=== PATIENT | female | born 1985 | race Caucasian/White ===

== ENCOUNTER 2017-11-07 13:31 | Outpatient (CLI) | payer BC ==
--- NOTE | 2017-11-07 16:16 | ULT ---
EXAM: LEFT BREAST ULTRASOUND 11/07/17 HISTORY: Palpable focus felt by the patient's doctor at the 2 o'clock position left breast. COMPARISON: None. TECHNIQUE: Targeted sonographic imaging left breast is performed at the 2 o'clock position. Static images were r eviewed. Left breast was palpated by the radiologist. Real time imaging was performed in the presence of the radiologist. FINDINGS: Static and real time images demonstrated fibroglandular tissue. No solid or cystic masses. No archite ctural distortion of shadowing. IMPRESSION: BIRADS 0: Incomplete: Need Additional Imaging Evaluation and/or Prior Mammograms for Comparison. [place] gnostic mammogram is required to complete the assessment. RECOMMENDATION: Diagnostic breast mammogram. POS: VIANNEY
== END 2017-11-07 13:32 | disposition home or self-care (01) ==
LOC: ULT 13:31
PROVIDERS: ATTEND Student in an Organized Health Care Education/Training Program
DX: N64.4 Mastodynia (principal)

== ENCOUNTER 2018-06-07 15:46 | Day surgery (SDC) | payer OTHER ==
[2018-06-07] MEDS ORDERED: Bupivacaine/Epinephrine 0.25% 30 ML VIAL ONE (16:04)
[2018-06-07] MEDS ORDERED: Midazolam HCl 2 mg/2 ml Vial ONE (16:18)
[2018-06-07] MEDS ORDERED: Fentanyl 250 MCG/5 ML VIAL ONE (16:18)
[2018-06-07] MEDS ORDERED: Ondansetron HCl/PF 4 MG/2 ML Vial ONE ×2 (16:27→19:55)
[2018-06-07] MEDS ORDERED: Clindamycin/D5W 900 mg/50 ml Premix Bag ONE (16:47)
--- NOTE | 2018-06-07 17:30 | HP ---
DATE OF SERVICE: 06/07/2018 HISTORY OF PRESENT ILLNESS: Ms. Barton is a 33-year-old woman who presented to the local emergency d [facility] with complaint of a recurrent epigastric abdominal pain. Patient describes the pain as sha rp without radiation. Pain is rated at 10/10. She recalls similar pain 3 weeks previously, which re solved spontaneously. This pain today started approximately 0930 after breakfast. She admits to rasheed e nausea, but no emesis. She denies any change in bowel habits. PAST MEDICAL HISTORY: Pertinent for chronic depression. PAST SURGICAL HISTORY: Pertinent for x1, laparoscopic appendectomy, gastric sleeve operati on in [place] SOCIAL HISTORY: The patient is and lives at home with her family. She is a . 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 She denies any cigarette smoking, ethanol or illicit drug abuse. FAMILY HISTORY: Unremarkable for diabetes mellitus, hypertension, heart disease or cancer. PREHOSPITAL MEDICATIONS: Celexa 40 mg p.o. daily and Xanax 0.25 mg which she takes p.o. p.r.n. anxie ty. ALLERGIES: PENICILLIN. REVIEW OF SYSTEMS: Ten point review of systems essentially unremarkable except for as stated in past medical history and chief complaint. PHYSICAL EXAMINATION: GENERAL: This reveals a 33-year-old normally developed woman who is otherwise coherent and interacti ve and appears stated age. The patient is alert and oriented x3, appears to be in no acute distress. At the time of my evaluation, she had received Dilaudid from the local emergency department prior t o this transfer: VITAL SIGNS: Currently includes blood pressure 100/67, pulse 64, respiratory rate is 18, temperature is 97.6 degrees Fahrenheit, oxygen saturation is 98% on room air. HEENT: Reveals normocephalic and atraumatic. Pupils are equal, round, and reactive to light and acc ommodation. Extraocular muscles are intact bilaterally. No sclerae icterus is present. Oral mucosa is pink and moist. No lesions are noted. NECK: Supple. No palpable lymphadenopathy or thyromegaly present. CARDIOVASCULAR: Reveals regular rate and rhythm, no murmurs or gallops auscultated. LUNGS: Clear to auscultation bilaterally. Breathing is regular and unlabored. ABDOMEN: Soft and nondistended. She has moderate epigastric to right upper quadrant tenderness to p alpation. Liver and spleen otherwise nonpalpable below costal margins. PERTINENT LABORATORY DATA: Accompanying abdominal ultrasound reveals intraluminal gallstones with no thickened gallbladder wall or pericholecystic fluid present. Common bile duct is normal in diameter at 4.2 mm. Accompanying laboratory studies from [facility] includes a CBC with 6300 white blood cells, hemoglobin and hematocrit 12.0 and 39.0 respectively. Platelet count is 185,000. Metabolic profile : Sodium 140, potassium is 4.0, chloride is 105, bicarbonate is 29, glucose is 86, BUN 9, creatinine 0.7. ALT and AST are noted at 22 and 42 respectively. Total bilirubin is normal at 0.6. Urinalysis essentially unremarkable. IMPRESSION: Acute cholecystitis with cholelithiasis. PLAN: Laparoscopic cholecystectomy. Above findings and plan has been discussed with the patient in the presence of her mother and her nurse at bedside. I have advised the patient of the risks and benefits of the proposed surgery. Risks include, but not limited to bleeding, infection, injury to bile duct or surrounding structures. The patient indicates understanding of information given. I have also answered all her questions. T he patient has granted consent for this admission and surgical intervention.
[2018-06-07] MEDS ORDERED: Ketorolac Tromethamine 30 MG/ML VIAL ONE (18:37)
[2018-06-07] MEDS ORDERED: traMADol HCl 50 MG TAB ONE (19:26)
[2018-06-07] MEDS ORDERED: Ondansetron ODT 4 MG TAB ONE (19:55)
--- NOTE | 2018-06-07 23:49 | OP ---
DATE OF OPERATION: 06/07/2018 PREOPERATIVE DIAGNOSIS: Acute cholecystitis with cholelithiasis. POSTOPERATIVE DIAGNOSIS: Acute cholecystitis with cholelithiasis. OPERATION PERFORMED: Laparoscopic cholecystectomy. SURGEON: Russ Ortiz D.O. ANESTHESIA: General endotracheal. ESTIMATED BLOOD LOSS: 5 mL FLUIDS GIVEN: 700 mL crystalloids. SPONGE AND INSTRUMENT COUNT: Certified as correct x2. COMPLICATIONS: None apparent at the time of operation. INDICATIONS FOR PROCEDURE: This is a 33-year-old woman presented with recurrent epigastric abdominal pain. Clinical and radiographic examination was consistent with acute cholecystitis with cholelithiasis. The patient was brought to the operating room for cholecystectomy. Findings are consistent with gallbladder in the usual anatomic location partially encased by omental adhesions. DESCRIPTION OF PROCEDURE: Informed consent was obtained from the patient, was brought to the operati ng room and placed in supine position. Following general anesthesia, the abdomen was sterilely prepp ed and draped in the usual fashion. The skin below the umbilicus was infiltrated with 0.25% Marcaine with epinephrine. Small curvilinear infraumbilical incision was made using an 11 scalpel. Umbilica l stalk grasped with [place]'s and elevated. Veress needle was inserted through the incision and plac ed in the peritoneal cavity through which the abdomen was insufflated with 3.5 liters of CO2 gas. In traabdominal pressure was noted at 2 mmHg. Following abdominal insufflation, Veress needle was remov ed and a 5 mm trocar was then introduced using the Visiport under laparoscopy. Laparoscopy confirmed proper placement of the port, no injuries to underlying structures. Additional laparoscopy reveals gallbladder in the usual anatomic location partially encased by omental adhesions. Under direct lapa roscopy, a 12-mm epigastric and two 5 mm lateral subcostal ports were placed after the overlying skin was infiltrated with 0.25% Marcaine with epinephrine and appropriate incisions was made. The patien t was then placed in a reverse Trendelenburg position, rotated to her left. I introduced [place] di ssector with cautery to take down omental adhesions. A Prestige grasper was then introduced through the right lateral subcostal port grasping the fundus of the gallbladder which was elevated cephalad. A second Prestige grasper was introduced through the right medial subcostal port grasping the Hartma n's pouch which was retracted laterally. The cystic duct was carefully dissected free from surrounding structures at the triangle of Calot. T he duct was divided between clips, applying two clips proximally, one clip at the junction of the cys tic duct and gallbladder. Cystic artery was dissected free from surrounding structures and divided b etween clips in a similar fashion. Gallbladder itself was removed from the liver bed with cautery no ting good hemostasis. Gallbladder was delivered off the abdominal cavity using an EndoCatch. Operat nidhi site was inspected for good hemostasis. All clips remain in place, no bile stains noted. Findin g no other pathology, laparoscopy was terminated. Fascia of the epigastric port was closed using 0 V icryl suture and Endo closure device under laparoscopy. Abdomen was then desufflated. All ports and instruments removed and accounted for. Skin incisions were closed using 4-0 Monocryl suture in subc uticular fashion. Dermabond was then applied over the incisions. Patient tolerated the operation wi thout any apparent complication and was returned to recovery room in a satisfactory condition.
== END 2018-06-07 20:05 | disposition home or self-care (01) ==
LOC: SDC 15:46
PROVIDERS: ATTEND Surgery
PROC: 0FT44ZZ Resection of Gallbladder, Percutaneous Endoscopic Approach (ICD-10-PCS; principal; 2018-06-07)
DX: K80.12 Calculus of gallbladder with acute and chronic cholecystitis without obstruction (principal); F32.9 Major depressive disorder, single episode, unspecified; Z79.899 Other long term (current) drug therapy; Z88.0 Allergy status to penicillin; Z88.1 Allergy status to other antibiotic agents; Z88.8 Allergy status to other drugs, medicaments and biological substances
CPT/HCPCS: 88304; 96374; J1885; J2250; J2405; J3010; J3490; Q0162

== ENCOUNTER 2020-09-30 10:18 | Outpatient (CLI) | payer OTHER ==
--- NOTE | 2020-09-30 10:57 | MMO ---
Bilateral MAMMO Bilat Diag [facility]. CLINICAL HISTORY: Patient is 35 years old and is seen for diagnostic exam. The patient has no family history of breast cancer. The patient has no personal history of cancer. VIEWS: The views performed were: bilateral craniocaudal with tomosynthesis; bilateral mediolateral oblique with tomosynthesis; and bilateral mediolateral with tomosynthesis. FILMS COMPARED: The present examination has been compared to a prior imaging study performed at [facility] on 09/30/2020. This study has been interpreted with the assistance of computer-aided detection. MAMMOGRAM FINDINGS: There are scattered fibroglandular densities. No mammographic or sonograhic abnormality is seen at the site of palpable concern in the left breast (2:00) There are no suspicious masses, suspicious calcifications, or new areas of architectural distortion. IMPRESSION: THERE IS NO MAMMOGRAPHIC EVIDENCE OF MALIGNANCY. AGE APPROPRIATE SCREENING BASED ON RISK FACTORS IS RECOMMENDED. THE RESULTS OF THIS EXAM WERE SENT TO THE PATIENT. ACR BI-RADS Category 2 - Benign finding MAMMOGRAPHY NOTE: 1. A negative mammogram report should not delay a biopsy if a dominant of clinically suspicious mass is present. 2. Approximately 10% to 15% of breast cancers are not detected by mammography. 3. Adenosis and dense breasts may obscure an underlying neoplasm. Reported by: PIEDAD ERAZO MD Electonically Signed: [id number]
--- NOTE | 2020-09-30 10:59 | ULT ---
LIMITED LEFT BREAST ULTRASOUND: HISTORY: Palpable abnormality at the 2 o'clock position of the left breast. FINDINGS: Correlation is made with the mammogram of the same date. Sonographic evaluation f the region of palpable concern at the 2 o'clock position of the left breast demonstrates no abnormality. IMPRESSION: BIRADS category 2 - benign findings. Return to age-appropriate screening based on risk factors. POS: OFF
== END 2020-09-30 10:19 | disposition home or self-care (01) ==
LOC: BICMAMMO 10:18
PROVIDERS: ATTEND Student in an Organized Health Care Education/Training Program
DX: N63.20 Unspecified lump in the left breast, unspecified quadrant (principal)
CPT/HCPCS: 77066; G0279

== ENCOUNTER 2022-09-08 14:13 | Emergency (ER) | payer BC ==
[2022-09-08] MEDS ORDERED: levETIRAcetam 500 MG/5 ML VIAL ONE (14:58)
[2022-09-08 15:16] LABS: #Eosinphils 0.1 thou/uL (0.0-0.7); #Lymphocytes 1.7 thou/uL (1.20-3.40); #Monocytes 0.6 thou/uL (0.11-0.59); #Neutrophils 3.6 thou/uL (1.40-6.50); %Basophils 0.5 % (0.0-1.0); %Eosinophils 1.1 % (0.0-10.0); %Lymphocytes 28.3 % (21.0-51.0); %Monocytes 9.7 % (0.0-10.0); %Neutrophils 60.4 % (42.0-75.0); Hemoglobin 12.7 g/dL (12.0-16.0); Mean Corpuscular HGB CONC 32.6 g/dL (32.0-36.0); Mean Corpuscular Hemoglobin 30.7 pg (27.0-31.0); Mean Corpuscular Volume 94.1 fL (78.0-98.0); Mean Platelet Volume 9.5 fL (7.4-10.4); Platelet Count 168 thou/uL (130-400); RBC Distribution Width 13.6 % (11.5-14.5); Red Blood Cell (RBC) Count 4.13 mill/uL (4.20-5.40)
[2022-09-08 15:23] LABS: BHCG - Serum Negative (NEGATIVE); Pregs Control Background? CLEAR/WHITE (CLR/WHITE); Pregs Control Bar Appear? YES (CONTROL BAR)
[2022-09-08 15:33] LABS: ALT (SGPT) 34 U/L (8-55); AST (SGOT) 25 U/L (5-34); Albumin 4.3 g/dL (3.5-5.0); Alkaline Phosphatase 60 U/L (40-110); Anion Gap 11 mmol/L (10-20); BUN (Urea Nitrogen) 13 mg/dL (7.0-18.7); Bilirubin, Total 0.3 mg/dL (0.2-1.2); CK (CPK) 77 U/L (29-168); Calc. Creatinine Clearance 0 mL/min (70-130); Calcium 9.5 mg/dL (7.8-10.44); Carbon Dioxide 27 mmol/L (22-29); Chloride 106 mmol/L (98-107); Estimated GFR 83; Globulin 2.8 g/dL (2.4-3.5); Glucose 99 mg/dL (70-105); Protein, Total 7.1 g/dL (6.0-8.3); Sodium 140 mmol/L (136-145)
[2022-09-08 16:26] LABS: Bacteria/HPF 4+ HPF (None Seen); Bilirubin Negative (Negative); Blood, Urine Negative (Negative); Clarity Turbid (Clear); Glucose, Urine (Dipstick) Normal (Negative); Ketone, Urine Negative (Negative); Leukocyte Negative Leu/uL (Negative); Nitrite Negative (Negative); Protein, Urine (Dipstick) 30 mg/dL (Neg-Trace); RBC/HPF 0-3 HPF (0-3); Specific Gravity, Urine 1.034 (1.002-1.036); Squamous Epithelial 0-3 HPF (0-3); WBC/HPF None Seen HPF (0-3); pH, Urine 7.5 (5.0-9.0)
== END 2022-09-08 16:39 | disposition home or self-care (01) ==
LOC: ERS 14:13
DX: R56.9 Unspecified convulsions (principal)
CPT/HCPCS: 70450; 80053; 81003; 81015; 82550; 84703; 85025; 93005; 94760; 96374; J1953